=== PATIENT | female | born 1995 | race Two or more races ===

== ENCOUNTER 2018-10-08 20:55 | Emergency (ER) | payer OTHER ==
[~2018-10-08] VITALS: Ht 157.5 cm; Wt 79.8 kg
[2018-10-08 21:10] VITALS: BP 128/81
--- NOTE | 2018-10-08 21:10 | NUR ---
ED Nurse Note: Pt arrived ED from home. C/o had a piece of glass left in her right hand due to fell one week ago on glass. Pt is A/O X4. Vital signs stable at this time, waitng for orders.
[2018-10-08] MEDS ORDERED: Lidocaine 1% MPF 10mg/ml 5ml INJ ONE (21:30)
[2018-10-08] MEDS ORDERED: LET 3ml Soln TOPIC ONE (21:30)
[2018-10-08] MEDS ORDERED: Cephalexin 500mg cap ORAL ONE (21:30)
--- NOTE | 2018-10-08 23:14 | Emergency Room Report ---
History of Present Illness General Chief Complaint: Foreign Body Source: Patient Present Illness HPI Patient presents with a question of glass in her palm. She fell greater than a week ago. She has 2 cuts on her right palm. 1 of them has swollen and she feels hardness like there may be a foreign body present. She rates the pain at this time at 10/10 and sharp aching. The pain does not radiate up her arm. She denies fevers or chills. There is no numbness. No major medical problems. Denies other somatic complaints. 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 She is right-hand dominant. Last menstruation September 14. Tetanus reported up-to-date. Allergies: Coded Allergies: No Known Allergies (Unverified , 10/08/18) Patient History Past Medical History: see triage record Social History: Denies: smoking Social History Narrative Works in a warehouse Last Menstrual Period: 09/14/2018 Now: No Reviewed Nursing Documentation: PMH: Agreed; PSxH: Agreed Nursing Documentation-PMH Past Medical History: No Stated History Review of Systems Constitutional: Reports: see HPI Genitourinary: Reports: see HPI Musculoskeletal: Reports: see HPI Skin: Reports: see HPI Neurological: Reports: see HPI Physical Exam Vital Signs Date Time Temp Pulse Resp B/P (MAP) Pulse Ox O2 Delivery O2 Flow Rate FiO2 10/08/18 21:03 98.1 92 22 131/86 99 Room Air Sp02 EP Interpretation: reviewed, normal General Appearance: well appearing, no apparent distress, GCS 15 Head: normocephalic, atraumatic Eyes: bilateral eye normal inspection, bilateral eye PERRL ENT: hearing grossly normal, normal voice, moist mucus membranes Neck: full range of motion, supple Respiratory: no respiratory distress, speaking full sentences Musculoskeletal: digits/nails normal, gait/station normal, normal range of motion, swelling - Nodule right palm Neurologic: alert, oriented x3, sensory intact, normal gait, grossly normal Psychiatric: mood/affect normal Skin: other - Swelling and cornified nodule palm towards the ulnar side base Procedures Incision and Drainage Incision and Drainage : Consent: Verbal Site: R hand Blade Size: 11 I & D Procedure: betadine prep, sterile drapes applied, sterile dressing applied, gauze wick placed Wound Location: upper extremity Wound's Depth, Shape: superficial Wound Length (cm): 1 Wound Explored: contaminated - pus expressed Irrigated w/ Saline (ccs): 5 Anesthesia: 1% Lidocaine, other - LET Volume Anesthetic (ccs): 1 Patient Tolerated: Well Complications: None Progress LET applied. Prepped. Lido injected. Incised and pus expressed. No free FB, but some FB material associated with callous tissue. This was excised. Irrigated. Xray without FB. Viola well. Medical Decision Making Diagnostic Impression: Primary Impression: Foreign body of right hand Qualified Codes: S60.551A - Superficial foreign body of right hand, initial encounter Additional Impression: Abscess ER Course Patient presents with possible foreign body in the right hand. Differential includes abscess, foreign body, foreign body reaction amongst others. Exploration of the wound is indicated. Also antibiotics are indicated. See procedure note. Pus was expressed. It is possible that foreign body came out with that. Also there was a cornified tissue present and this was excised. Wound was explored and the more foreign bodies were felt. X-ray was obtained and no foreign body was identified on the x-ray. I discussed with the patient that there is still quite a bit of retained foreign body that was not radiopaque. She was advised to return if she still felt something present. Patient stable for outpatient observation and treatment. Other X-Ray Diagnostic Results Other X-Ray Diagnostic Results : X-Ray ordered: R hand # of Views/Limited Vs Complete: 3 View Indication: Other Interpretation: no dislocation, no soft tissue swelling, no fractures, other - no foreign bocy Last Vital Signs Date Time Temp Pulse Resp B/P (MAP) Pulse Ox O2 Delivery O2 Flow Rate FiO2 10/08/18 23:29 98.1 86 22 124/80 99 Room Air Status: improved Disposition: HOME, SELF-CARE Condition: Improved Scripts Tramadol Hcl* (ULTRAM*) 50 Mg Tablet 50 MG ORAL Q6H PRN for For Pain, #8 TAB 0 Refills Prov: Joaquin Goddard MD 10/08/18 Cephalexin* (KEFLEX*) 500 Mg Capsule 500 MG ORAL EVERY 6 HOURS, #28 CAP Prov: Joaquin Goddard MD 10/08/18 Bacitracin (Bacitracin) 28.4 Gm Oint...g. 1 APPLIC TOPIC BID, #20 GM Prov: Joaquin Goddard MD 10/08/18 Referrals: [facility],REFERRING (PCP) Joaquin Goddard MD Oct 08, 2018 23:14
[2018-10-08] MEDS ORDERED: Bacitracin Oint UD TOPIC ONE (23:15)
[2018-10-08] MEDS ORDERED: CEPHALEXIN500 MG ORAL (23:17)
[2018-10-08] MEDS ORDERED: BACITRACIN15 GM TOPIC (23:17)
[2018-10-08] MEDS ORDERED: TRAMADOL HCL50 MG ORAL (23:17)
[2018-10-08 23:29] VITALS: BP 124/80
--- NOTE | 2018-10-08 23:29 | NUR ---
ED Nurse Note: Pt has seen by Dr. Goddard, all orders carried out, a piece of glass was removed by Dr. Goddard, X-ray done after the removing. Dressing applied. Pt is ready for discharge, D/c instruction and prescription given to Pt and verbalized understanding. ID band removed. Pt is d/c from ED with steady gait and all her belongings. Accompanied by her family.
== END 2018-10-08 23:29 | disposition home or self-care (01) ==
LOC: EMR 21:47
DX: S60.551A Superficial foreign body of right hand, initial encounter (principal); L02.511 Cutaneous abscess of right hand; Z87.891 Personal history of nicotine dependence; W19.XXXA Unspecified fall, initial encounter; Y92.89 Other specified places as the place of occurrence of the external cause
CPT/HCPCS: 99283

== ENCOUNTER 2019-10-05 21:29 | Emergency (ER) | payer OTHER ==
[~2019-10-05] VITALS: Ht 157.5 cm; Wt 80.3 kg
[~2019-10-05 21:29] MED LIST: BACITRACIN15 GM TOPIC; CEPHALEXIN500 MG ORAL; TRAMADOL HCL50 MG ORAL
[2019-10-05 21:40] VITALS: BP 121/79
--- NOTE | 2019-10-05 21:40 | NUR ---
ED Nurse Note: Pt ambulated to ED from home c.o L eye swelling and drainage of pus since thursday. Pt says this occurs often. Pt denies fever or chills. VSS, ERMD at bedside. Vision is intact
--- NOTE | 2019-10-05 21:58 | Emergency Room Report ---
History of Present Illness General Chief Complaint: Eye Problems Source: Patient Present Illness HPI Patient presents with pain, redness and swelling of the left upper eyelid. She reports pain of 10/10 with aching and pressure. The eye itself is not tender. There is no change in her vision. She has had recurrent problems with this eye. They tried using [id number] eyedrops and this did not help and the eyes seem to worsen. There is no discharge or crustiness. Patient denies any fever. She does not believe she is at this time. Allergies: Coded Allergies: No Known Allergies (Unverified , 10/08/18) Patient History Past Medical History: see triage record Social History: Denies: smoking Social History Narrative With significant other Last Menstrual Period: 09/30/19 Now: No Reviewed Nursing Documentation: PMH: Agreed; PSxH: Agreed Nursing Documentation-PMH Past Medical History: No Stated History Review of Systems Constitutional: Reports: see HPI Eye: Reports: see HPI ENT: Denies: nose pain, nose congestion, throat pain Respiratory: Denies: cough Gastrointestinal: Denies: nausea Genitourinary: Reports: see HPI Skin: Reports: see HPI Neurological: Denies: headache Physical Exam Vital Signs Date Time Temp Pulse Resp B/P (MAP) Pulse Ox O2 Delivery O2 Flow Rate FiO2 10/05/19 21:36 98.1 83 19 121/79 (93) 98 Room Air Sp02 EP Interpretation: reviewed, normal General Appearance: well appearing, no apparent distress, GCS 15 Head: normocephalic Eyes: left eye other - Erythema and swelling of left upper eyelid; bilateral eye PERRL, bilateral eye EOMI ENT: normal pharynx, moist mucus membranes Neck: full range of motion, supple Cardiovascular #1: regular rate, rhythm Cardiovascular #2: 2+ radial (R) Gastrointestinal: normal inspection Musculoskeletal: gait/station normal Neurologic: alert, grossly normal Psychiatric: mood/affect normal Skin: warm/dry, other - See eye exam Medical Decision Making Diagnostic Impression: Primary Impression: Sty Qualified Codes: H00.014 - Hordeolum externum left upper eyelid ER Course Patient presents with swelling and redness and pain to the left upper eyelid. Clinically this is an infected stye and antibiotic drops and oral antibiotics are indicated. An ice pack is applied. The patient is also given Tylenol. Vision is not involved and extraocular motions are normal. This excludes periorbital cellulitis. Discussed findings with patient. Also discussed the need to follow-up with an interactive digital media specialist. Patient improved and stable for outpatient observation and treatment. Last Vital Signs Date Time Temp Pulse Resp B/P (MAP) Pulse Ox O2 Delivery O2 Flow Rate FiO2 10/05/19 22:10 98.1 19 121/79 98 Room Air 10/05/19 21:36 83 Status: improved Disposition: HOME, SELF-CARE Condition: Improved Scripts Tramadol Hcl* (ULTRAM*) 50 Mg Tablet 50 MG ORAL Q6H PRN for For Pain, #8 TAB 0 Refills Prov: Joaquin Goddard MD 10/05/19 Ibuprofen* (MOTRIN*) 600 Mg Tablet 600 MG ORAL Q6H PRN for For Pain, #16 TAB Prov: Joaquin Goddard MD 10/05/19 Sulfacetamide Sodium (BLEPH-10) 5 Ml Drops 2 DROP OP Q6HR, #10 ML Prov: Joaquin Goddard MD 10/05/19 Trimethoprim/Sulfamethoxazole 160/800* (BACTRIM DS TABLET*) 1 Each Tablet 1 TAB ORAL Q12H, #14 TAB 0 Refills Prov: Joaquin Goddard MD 10/05/19 Referrals: [facility],REFERRING (PCP) Joaquin Goddard MD Oct 05, 2019 21:58
[2019-10-05] MEDS ORDERED: Bactrim-DS 1 tab ORAL ONE (22:00)
[2019-10-05] MEDS ORDERED: BACTRIM DS TAB1 EAC1 ORAL (22:02)
[2019-10-05] MEDS ORDERED: IBUPROFEN600 MG ORAL (22:02)
[2019-10-05] MEDS ORDERED: TRAMADOL HCL50 MG ORAL (22:02)
[2019-10-05] MEDS ORDERED: BLEPH-105 ML OP (22:02)
[2019-10-05 22:10] VITALS: BP 121/79
--- NOTE | 2019-10-05 22:10 | NUR ---
ER DISCHARGE NOTE: Patient is cleared to be discharged per ERMD, pt is aox4, on room air, with stable vital signs. pt was given dc and prescription instructions, pt was able to verbalize understanding, pt id band removed. pt is able to ambulate with steady gait. pt took all belongings.
== END 2019-10-05 22:10 | disposition home or self-care (01) ==
LOC: EMR 21:57
DX: H00.016 Hordeolum externum left eye, unspecified eyelid (principal)
CPT/HCPCS: 99282